=== PATIENT | male | born 1945 | race Caucasian/White ===

== ENCOUNTER → 2019-04-09 | Outpatient (CLI) | payer OTHER ==
[~2019-04-09] VITALS: Ht 160 cm; Wt 65.3 kg
[~2019-04-09] MED LIST: AMLODIPINE BESY10 MG PO; LISINOPRIL-HCT1 EAC1 PO; XALATAN2.5 ML OPHTHALMIC
--- NOTE | 2019-04-09 17:14 | P ---
[facility] [place] [address] PROCEDURE REPORT Name: CASSIDY TINOCO Room #: REG [facility]#: [id number] Admission: 04/09/19 Attend Phys: Cassidy Davis MD Discharge: Date of : 43 Report #: [id number] THIS REPORT FOR: //name// CC: Ronak Davis DATE OF SERVICE: 04/09/2019 OUTPATIENT COLONOSCOPY REPORT BRIEF HISTORY: The patient is a 73-year-old male with a history of colon polyp removed in 2012. He presents for high risk screening colonoscopy due to history of colon polyp. PREOPERATIVE DIAGNOSIS: High risk screening colonoscopy. POSTOPERATIVE DIAGNOSES: 1. Diminutive polyp at the splenic flexure. 2. Moderately severe diverticulosis coli, primarily sigmoid colon. 3. Moderate internal hemorrhoids. MEDICATIONS: Deep sedation with propofol per anesthesia. SPECIMEN: Splenic flexure polyp. ESTIMATED BLOOD LOSS: 3 mL. PROCEDURE: Colonoscopy to cecum and terminal ileum with biopsy. FINDINGS: Prior to propofol sedation, procedure of colonoscopy was discussed with the patient as well as potential risks and its complications. He indicates he understands and desires to proceed. DESCRIPTION OF PROCEDURE: With the patient in left lateral decubitus position, digital examination was completed, which revealed no abnormalities. Subsequently, the Olympus video colonoscope was introduced in the rectum, advanced under direct vision to the cecum. Done with minimal difficulty. The cecum was identified by the ileocecal valve and the appendiceal orifice. I was able to visualize the distal segment of terminal ileum, which was inspected and noted to be unremarkable. At that point, the scope was slowly withdrawn and careful circumferential views obtained including retroflexion of the scope in the ascending colon. Upon slow withdrawal of the scope, the prep was excellent. The mucosa was within normal limits, normal vascular pattern, normal light reflex. No mucosal abnormalities were noted until the splenic flexure was reached, at which point a diminutive polyp was seen and removed with biopsy [facility] [address] [place] [address] PROCEDURE REPORT Name: CASSIDY TINOCO Room #: REG [facility].#: [id number] Admission: 04/09/19 Attend Phys: Cassidy Davis MD Discharge: Date of : 43 Report #: [id number] forceps. Scope was further withdrawn and no additional neoplastic changes were seen. However, in the sigmoid colon, there was noted to be moderately severe diverticular disease without endoscopic evidence of diverticulitis. The scope was withdrawn in the rectum, no abnormalities were seen. However, on retroflexion, moderate internal hemorrhoids were seen. Scope was withdrawn. The patient tolerated the procedure well. CONDITION OF THE PATIENT UPON DISCHARGE: Following procedure, the patient drowsy, aroused, conversant and will be discharged home when fully ambulatory. INSTRUCTIONS TO THE PATIENT AND FAMILY AT THE TIME OF DISCHARGE: We will follow up on the path of the polyp. If this is an adenoma, he should return in 5 years, if not an adenoma, then 10 years would be indicated. He will otherwise return to the care of Dr. Ronak White, return to see me as needed. Also, suggest high-fiber diet for his diverticular disease. Last colonoscopy was 6 years ago. Withdrawal time from the cecum was 9 minutes 57 seconds. <ELECTRONICALLY SIGNED> By: Cassidy Davis MD 04/09/19 1714 0832 [id number] Cassidy Davis MD /nt
--- NOTE | 2019-04-13 16:06 | PATH ---
[facility] [address] [place] [address] PATHOLOGY RPT PROCEDURE Name: CASSIDY NAVARRETE Room #: REG [facility] Josiah.#: [id number] Admission: 04/09/19 Date of : 43 Discharge: Report #: [id number] Path Case #: [id number] [facility] Accession Number: [id number] . 01 Material submitted: . splenic flexure - POLYP AT SPLENIC FLEXURE . 01 Clinical history: . Preop DX: Screen hx of colon polyps Postop DX: Diverticulosis, hemorrhoids, polyps . 02 Diagnosis: Polyp, at splenic flexure, endoscopic biopsy: - Minute tubular adenoma. - Negative for high-grade dysplasia. 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 02 Electronically signed: . Diann Morales MD, Pathologist NPI- [id number] . 01 Gross description: . Received in formalin labeled "Cassidy Navarrete, polyp at splenic flexure," is a segment of pale zapata soft tissue measuring 0.4 x 0.3 x 0.1 cm in greatest dimensions. The specimen is submitted entirely in cassette A1. ([facility]; 04/12/2019) XDC/XDC 04/12/2019 0919 Local . 02 Pathologist provided ICD-10: D12.3 . 02 CPT . 814014 Specimen Comment: A courtesy copy of this report has been sent to [phone], [phone] Specimen Comment: [phone] Specimen Comment: Report sent to and Performed at: [address], [place] [id number] MD Jose Owens MD Phone: [phone] Performed at: [address] [id number] MD Diann Morales MD Phone: [phone]
== END | disposition home or self-care (01) ==
LOC: GI 06:48
DX: Z12.11 Encounter for screening for malignant neoplasm of colon (principal); Z86.010 Personal history of colon polyps; D12.3 Benign neoplasm of transverse colon; K57.30 Diverticulosis of large intestine without perforation or abscess without bleeding; K64.8 Other hemorrhoids; I10 Essential (primary) hypertension; K21.9 Gastro-esophageal reflux disease without esophagitis; Z98.890 Other specified postprocedural states; Z79.899 Other long term (current) drug therapy
CPT/HCPCS: 62110; 62900